=== PATIENT | male | born 1990 | race Caucasian/White ===

== ENCOUNTER 2021-01-20 20:33 | Emergency (ER) | payer OTHER ==
[~2021-01-20] VITALS: Ht 185.4 cm; Wt 108.9 kg
[2021-01-20 20:38] VITALS: BP 156/85
[2021-01-20] MEDS ORDERED: CLEOCIN HCL150 MG PO (21:19)
[2021-01-20] MEDS ORDERED: IBU600 MG PO (21:19)
== END 2021-01-20 21:36 | disposition home or self-care (01) ==
LOC: ER 20:33
DX: L02.31 Cutaneous abscess of buttock (principal)